=== PATIENT | female | born 1955 | race Caucasian/White ===

== ENCOUNTER 2023-06-14 09:56 | Emergency (ER) | payer MEDICARE, MEDICAID ==
[2023-06-14] VITALS (7 sets, daily range): BP systolic 133–180; BP diastolic 47–88
[~2023-06-14] VITALS: Ht 165.1 cm; Wt 181.8 kg
[2023-06-14] MEDS ORDERED: VENTOLIN HFA108 MCG (10:48)
[2023-06-14] MEDS ORDERED: ASPIRIN 81 LOW81 MG (10:49)
[2023-06-14] MEDS ORDERED: EPIPEN 2-P0.3 MG/0.3 (10:49)
[2023-06-14 12:20] LABS: URINE BILIRUBIN - DIPSTICK Negative (NEGATIVE); URINE BLOOD DIPSTICK Trace-intact (NEGATIVE); URINE GLUCOSE - DIPSTICK Negative (NEGATIVE); URINE KETONE Negative (NEGATIVE); URINE LEUK ESTERASE Negative (NEGATIVE); URINE NITRITE - DIPSTICK Negative (Negative); URINE PH 6.5 (4.5-8.0); URINE PROTEIN - DIPSTICK Negative (NEG-TRACE); URINE UROBILINOGEN - DIPSTICK 0.2 E.U./dL (0.2)
[2023-06-14 12:25] LABS: BASO% 0.3 % (0-3); EOS% 0.6 % (0-8); HEMATOCRIT 42.3 % (37.0-47.0); HEMOGLOBIN 13.3 g/dl (12.0-16.0); IMMATURE GRANULOCYTES 0.1 % (0.0-5.0); LYMPH% 14.6 % (15-41); MEAN CORPUSCULAR HGB 31.7 pG CALC (26.0-32.0); MEAN CORPUSCULAR HGB CONC 31.4 g/dL CAL (32.0-36.0); MONO% 4.3 % (2-13); NEUT# 6.35 thou/uL (2.00-7.15); NEUT% 80.1 % (42-76); RED BLOOD COUNT 4.19 mill/uL (4.20-5.60); RED CELL DISTRI WIDTH 12.7 % (11.5-15.5)
[2023-06-14 12:56] LABS: URINE COLOR Yellow
[2023-06-14 13:16] LABS: ALBUMIN 4.2 g/dL (3.2-5.0); BILIRUBIN, TOTAL 0.6 mg/dL (0.02-1.3); CREATININE 1.2 mg/dL (0.5-1.0); POTASSIUM 4.8 mmol/l (3.5-5.1); TOTAL PROTEIN 7.7 g/dL (6.3-8.2)
[2023-06-14] MEDS ORDERED: TRAMADOL HYDROC50 M1 PO (16:00)
== END 2023-06-14 17:07 | disposition home or self-care (01) ==
LOC: ED 09:56
PROVIDERS: Family Medicine
DX: M16.12 Unilateral primary osteoarthritis, left hip (principal); I10 Essential (primary) hypertension
CPT/HCPCS: Q9967